=== PATIENT | female | born 1980 | race Caucasian/White ===

== ENCOUNTER 2016-07-24 20:22 | Emergency (ER) | payer MEDICAID ==
[~2016-07-24] VITALS: Ht 157.5 cm; Wt 54.0 kg
[~2016-07-24 20:22] MED LIST: HYDR-3533 PO; HYDR-3583 PO; IBUP-232 PO; PREN1CAP20 PO; RANI150 PO; SENN1TAB PO; WELL150T PO
[2016-07-24 20:23] VITALS: BP 177/96; PULSE 76; RESP 16; TEMP 97.8; O2SAT 100
--- NOTE | 2016-07-25 08:40 | EKG ---
Date Performed: 07/24/2016 Time Performed: 20:39:51 PTAGE: 35 years EKG: Sinus rhythm NORMAL ECG PREVIOUS TRACING : 10/28/2012 00.45 DOCTOR: Singh Orosco Interpretating Date/Time 07/25/2016 08:36:59
[2016-09-25] MEDS ORDERED: CLIN2CRE5 VAGINAL (13:03)
== END 2016-07-24 23:30 | disposition left against medical advice (07) ==
LOC: NED 20:22
DX: R07.9 Chest pain, unspecified (principal)
CPT/HCPCS: 93005; 99281